=== PATIENT | female | born 1950 ===

== ENCOUNTER 2023-07-23 05:21 | Day surgery (SDC) | payer OTHER ==
[2023-07-23] MEDS ORDERED: DIPHENHYDRAMINE HCL 50 MG/ML VIAL 1ML IV ONE (10:00)
[2023-07-23] MEDS ORDERED: MIDAZOLAM HCL 2 MG/2 ML VIAL IV ONE (10:00)
[2023-07-23] MEDS ORDERED: fentaNYL CITRATE 50 MCG/ML AMPUL IV ONE (10:00)
== END 2023-07-23 12:45 | disposition home or self-care (01) ==
LOC: AMB-ENDOS 05:21 → CIR.AMB 13:30 → AMB-ENDOS 13:30
PROVIDERS: ATTEND Surgery
DX: K62.5 Hemorrhage of anus and rectum (principal); K57.30 Diverticulosis of large intestine without perforation or abscess without bleeding; R19.4 Change in bowel habit